=== PATIENT | male | born 1975 | race Caucasian/White ===

== ENCOUNTER → 2016-11-29 | Day surgery (SDC) | payer OTHER ==
[2016-11-03 14:44] VITALS: Ht 177.8 cm; Wt 109.1 kg
[~2016-11-29] VITALS: Ht 177.8 cm; Wt 109.1 kg
[~2016-11-29] MED LIST: ASPEC325 PO; ATROPINE SULFATE 0.1 MG/ML 5ML SYR IV PRN; BUPIVACAINE/EPINEPHRINE 0.5% MPF 1:200,000 30 ML VIAL ONE; CEFAZOLIN 2000MG IV PUSH 10 ML IV SCH; CEFAZOLIN SOD 1 GM VIAL ONE; CEFAZOLIN SOD 1000MG/5 ML IV PUSH IV ONE; DEXAMETHASONE SOD INJ 4 MG/ML VIAL ONE; EpHEDrine SULFATE INJ 50 MG/ML AMP IV PRN; FENTANYL CITRATE INJ 50 MCG/1 ML 2 ML VIAL IV PRN; FENTANYL CITRATE INJ 50 MCG/1 ML 2 ML VIAL ONE; GLC/500 PO; KETO10TA PO; LACTATED RINGER'S 1000ML 1,000 ML IV SCH; LIDOCAINE HCL 2% 2 ML VIAL (20MG/ML) ONE; LISI-794 PO; MIDAZOLAM HCL 1 MG/ML 2ML VIAL ONE; ONDANSETRON INJ 2 MG/ML 2 ML VIAL IV PRN; ONDANSETRON INJ 2 MG/ML 2 ML VIAL ONE; OXYC-57 PO; OXYCODONE/ACETAMINOPHEN 5-325 TAB PO PRN; PROPOFOL IV EMULSION 10 MG/ML 20 ML VIAL IV ONE; SERT50TA PO; SIMV10TA2 PO; SODIUM CHLORIDE 0.9% 1000ML 1,000 ML IV SCH
--- NOTE | 2016-11-29 09:14 | History & Physical Bridge - [place] ---
H&P Re-Evaluation Bridge Note: I have examined the patient, reviewed the History & Physical and in the interval since the performance of the History & Physical I have noted the following changes of clinical significance: No changes noted
--- NOTE | 2016-11-29 10:36 | [facility] Post Operative Brief Note ---
Immediate Operative Summary Operative Date Nov 29, 2016. Pre-Operative Diagnosis Left Tarsal Tunnel Syndrome Post-Operative Diagnosis Same Procedure(s) Performed Left Tarsal Tunnel Release Surgeon Dr. Adames Director Of Quantitative Research Surgeon(s) Kiran Killian PA-C Estimated Blood Loss 20 ml Findings Left Tarsal Tunnel Syndrome Specimens None Anesthesia General Complication(s) None Disposition Recovery Room / PACU
--- NOTE | 2016-11-29 10:38 | Discharge Instructions-SurgCtr ---
Discharge Instructions Date of Service Nov 29, 2016. Visit Reason for Visit: Left Tarsal Tunnel Syndrome Discharge Discharge Diagnosis / Problem: left tarsal tunnel syndrome Discharge Goals Goal(s): Decrease discomfort, Therapeutic intervention Medications Stopped Medications Name(s): metformin 2 days ago Restart Stopped Medication(s): restart metformin today Activity Recommendations Activity Limitations: per Instructions/Follow-up section Weightbearing Status: Left non-weightbearing Anesthesia . Post Anesthesia Instructions: If you have had General Anesthesia or IV Sedation: * Do not drive today. * Resume driving when surgeon permits. * Do not make important decisions or sign legal documents today. * Call surgeon for: 1. Temperature elevations greater than 101 degrees F. 2. Uncontrollable pain. 3. Excessive bleeding. 4. Persistent nausea and vomiting. 5. Medication intolerance (nausea, vomiting or rash). * For nausea and vomiting use only clear liquids such as: tea, soda, bouillon until nausea subsides, then gradually increase diet as tolerated. * If you have any concerns or questions, call your surgeon's office. If physician is unavailable and it is an emergency, call 911 or go to the nearest emergency room. . Instructions / Follow-Up Instructions / Follow-Up MEDICATIONS: * Resume previous medications unless instructed otherwise by your surgeon. * Always take pain medication on a full stomach or with food to avoid upset stomach. * Do not drink alcohol or drive while taking narcotics. * Ibuprofen or Tylenol may be taken if narcotic not needed. No ibuprofen while taking toradol SPECIAL CARE INSTRUCTIONS: __ None _x_ Keep extremity elevated and iced x 48 hours; apply ice 20-30 minutes 8-10 times/day. May remove at night. _x_ Crutches __ May discard when able __ Brace/Post-op shoe __ 24 hrs/day __ Remove at night _x_ Dressing _x_ Maintain until seen in office, may shower with plastic over site __ Remove dressings in 24-48 hours and then may shower __ Cover incisions with band-aids after showering __ Do not remove steri-strips Call physician if chills or temperature rises above 102 degrees or pain unrelieved by prescribed pain medications. Office [phone] follow up in 2 weeks Diet Recommendations Home Diet: resume previous diet Procedures Procedures Performed: Left Tarsal Tunnel Release Pending Studies Studies pending at discharge: no Medical Emergencies . Who to Call and When: Medical Emergencies: If at any time you feel your situation is an emergency, please call 911 immediately. . Non-Emergent Contact Non-Emergency issues call your: Surgeon . . "Provider Documentation" section prepared by Momo Killian. .
[2016-11-29 11:19] VITALS: TEMP 36.2
--- NOTE | 2016-11-29 11:26 | Anesthesia Progress Nt - [facility] ---
Anesthesia Post Op Note Date & Time Nov 29, 2016 at 11:26 Vital Signs Pain Intensity: 0 Vital Signs Past 12 Hours Date Time Temp Pulse Resp B/P (MAP) Pulse Ox O2 Delivery O2 Flow Rate FiO2 11/29/16 11:11 107/68 11/29/16 11:09 37.0 95 Room Air 11/29/16 11:09 71 14 95 11/29/16 11:09 73 14 11/29/16 11:08 74 15 11/29/16 11:08 73 15 95 11/29/16 11:06 97/67 11/29/16 11:03 80 16 96 11/29/16 11:03 80 16 11/29/16 11:01 111/69 11/29/16 10:58 76 16 97 11/29/16 10:58 75 16 11/29/16 10:56 111/63 11/29/16 10:53 81 17 97 11/29/16 10:53 80 17 11/29/16 10:51 113/69 11/29/16 10:48 79 18 11/29/16 10:48 79 18 97 11/29/16 10:46 108/66 11/29/16 10:43 77 18 11/29/16 10:43 76 18 97 11/29/16 10:41 109/68 11/29/16 10:38 81 22 11/29/16 10:38 81 22 96 11/29/16 10:36 119/70 11/29/16 10:34 121/75 11/29/16 10:33 37.0 92 18 121/75 98 Mask 6 11/29/16 10:33 98 93 11/29/16 10:33 98 11/29/16 08:13 36.6 87 16 121/77 (92) 95 Room Air Notes Mental Status: alert / awake / arousable, participated in evaluation Pt Amnestic to Procedure: Yes Nausea / Vomiting: adequately controlled Pain: adequately controlled Airway Patency, RR, SpO2: stable & adequate BP & HR: stable & adequate Hydration State: stable & adequate Anesthetic Complications: no major complications apparent
[2016-11-29 11:44] VITALS: BP 101/64; O2SAT 96
--- NOTE | 2016-11-29 20:14 | OPERATIVE REPORT ---
DATE OF OPERATION: 11/29/2016 SURGEON: Roge Adames MD. ELECTRICAL INSTALLATION INSPECTOR: YADY Roman. PREOPERATIVE DIAGNOSIS: Left tarsal tunnel syndrome. POSTOPERATIVE DIAGNOSIS: Left tarsal tunnel syndrome. PROCEDURE PERFORMED: Left tarsal tunnel release. COMPLICATIONS: None. ESTIMATED BLOOD LOSS: 20 mL. TOURNIQUET TIME: 21 minutes at 300 mmHg. ANESTHESIA: General. SPECIMENS: None. OPERATIVE INDICATIONS: The patient is a 41-year-old male who has had a 6+ month history of left foot pain, discomfort, numbness, tingling and some spasm. He was initially seen by my partner Dr. New. He has been through conservative care without any adequate relief. He had nerve studies which revealed bilateral tarsal tunnel syndrome. He was only symptomatic on the left side. He continued conservative care without any improvement. He elected to proceed with left tarsal tunnel release. We did discuss the nature of this condition and the surgical procedure and discussed the fact that surgical release does not always guarantee a perfect result. Surgery for this condition is less predictable than many conditions that we treat. He elected to proceed with surgical management. OPERATIVE PROCEDURE: The patient was taken to the operating room, identified and placed on the operating table in supine position. All contact areas were appropriately padded. IV antibiotics were provided by anesthesia team. A general anesthetic was implemented by anesthesia team. A left thigh tourniquet was then placed. The left lower extremity was then prepped and draped in the usual sterile fashion. Left leg was elevated and exsanguinated with Esmarch and tourniquet was placed at 300 mmHg. A posterior medial approach to the ankle was then performed through a slightly curvilinear incision. I began this incision about 1 cm posterior and slightly proximal to the medial malleolus. I extended this up slightly proximally and then distally and then beyond the malleolus slightly anteriorly to the plantar aspect of the foot. The total incision length was 10 cm in length. Sharp dissection was carried out through the subcutaneous tissues down to the level of the fascia. I then identified the nerve proximal to the retinaculum. I then dissected out through the retinaculum to the plantar aspect of the foot. Both the medial plantar branch and the lateral plantar branch were identified. I released the fascia both the outer and the inner side of the abductor hallucis muscle belly. I then dissected the medial plantar nerve out distally along with the lateral plantar nerve. I made sure there was no residual compression. There were several large crossing vessels which were cauterized. Of note, there were no space occupying lesions in the tarsal tunnel itself. Of note, I did inject locally with 30 mL of 0.5% Marcaine with epinephrine. The tourniquet was then let down for a tourniquet time 21 minutes. There were some bleeders distally around the abductor muscle from these crossing veins which were cauterized. I took great care to try and really protect the underlying nerves while cauterizing these vessels and obtaining hemostasis. Once this was complete, I irrigated the wound again. The subcutaneous tissues were then closed with 2-0 Vicryl suture in a buried interrupted fashion. The skin was then closed with 3-0 nylon suture in a horizontal mattress fashion. The foot was then cleaned and dried and a sterile dressing of Xeroform, 4 x 4, sterile cast padding and a well-padded posterior splint were applied. The patient then brought out of general anesthesia and transferred to the recovery room in stable condition. The patient tolerated the procedure without complications. All needle and sponge counts were correct at the end of the operation. I attest to the content of the Intraoperative Record and any orders documented therein. Any exceptions are noted below. OZIEL
== END | disposition home or self-care (01) ==
LOC: X.SURG 07:56
PROVIDERS: ATTEND Orthopaedic Surgery Sports Medicine
DX: G57.52 Tarsal tunnel syndrome, left lower limb (principal); E11.9 Type 2 diabetes mellitus without complications; I10 Essential (primary) hypertension; Z91.013 Allergy to seafood